=== PATIENT | female | born 1955 | race Caucasian/White ===

== ENCOUNTER 2017-09-07 08:40 | Emergency (ER) | payer OTHER | END 2017-09-07 10:30 | disposition home or self-care (01) | LOC: FTE 10:30 | DX: J01.00 Acute maxillary sinusitis, unspecified (principal); R51 Headache; E03.9 Hypothyroidism, unspecified; E11.9 Type 2 diabetes mellitus without complications; Z79.4 Long term (current) use of insulin | CPT/HCPCS: 99283; Z7502 ==

== ENCOUNTER 2018-05-06 19:48 | Emergency (ER) | payer OTHER | END 2018-05-06 21:31 | disposition home or self-care (01) | LOC: E/R 19:48 | DX: T23.211A Burn of second degree of right thumb (nail), initial encounter (principal); E03.9 Hypothyroidism, unspecified; E11.9 Type 2 diabetes mellitus without complications; X15.8XXA Contact with other hot household appliances, initial encounter; Y92.9 Unspecified place or not applicable | CPT/HCPCS: 99283; Z7502 ==